=== PATIENT | male | born 1945 ===

== ENCOUNTER 2018-04-26 06:21 | Day surgery (SDC) | payer MEDICARE, OTHER ==
[2018-04-25 11:23] VITALS: BMI 23.6
--- NOTE | 2018-04-26 02:40 | HP ---
DATE OF EXAM: REASON FOR ADMISSION: Left heart catheterization, possible angioplasty and abnormal stress test. BRIEF CLINICAL HISTORY: This is a 73-year-old male with a past medical history significant for hypertension, hyperlipidemia, gastroesophageal reflux, complaining of dyspnea on exertion, and chest pain on exertion. The patient underwent a stress test abnormal, so the patient is scheduled for elective cardiac catheterization and possible angioplasty. PAST MEDICAL HISTORY: Significant for hypertension, hyperlipidemia, and gastroesophageal reflux. SOCIAL HISTORY: Denies any smoking. Denies any history of alcohol abuse. Quit smoking 20 years ago, but still claims that sometimes he drinks socially, sometimes more than socially. Recent cardiac workup as follows; the patient had echocardiography done on 03/22/2018 that shows normal chamber size systolic function, preserved ejection fraction 55%. Aortic valve only two calcified cusp seen with mild stenosis of aortic valve, mean aortic valve gradient 30 mm, cannot rule out bicuspid aortic valve. Mild aortic regurgitation. Moderate mitral regurgitation. Mild tricuspid regurgitation. The patient had a stress test that is abnormal myocardial perfusion study, partial reversible small distal anteroseptal defect suspicious for ischemia. Mild LV dysfunction, ejection fraction 44%. The patient walk on the treadmill 9 minute and [address]-T changes. No complaints of the chest pain. CURRENT MEDICATIONS: The patient is taking at home; diazepam 5 mg daily, Prevacid 30 mg daily, amlodipine and benazepril combination that is Exforge combination 10 or 20 once a day. ALLERGIES: ALLERGIC TO PENICILLIN. REVIEW OF SYSTEMS: As per HPI. PHYSICAL EXAMINATION: VITAL SIGNS: Height of the patient is 5 feet 10 inches, weight of the patient 165 pounds, and body mass index 23 kg/m2. HEENT: PERRLA. Extraocular muscles intact. NECK: Supple. No carotid bruits or thyromegaly. CHEST: Clear to auscultation. HEART: S1 and S2 regular. Loud systolic murmur noted in the aortic area. ABDOMEN: Soft. EXTREMITIES: Clubbing and cyanosis negative. IMPRESSION: Abnormal stress test, dyspnea on exertion, rule out underlying coronary artery disease, and mildly diffuse left ventricular function by stress test. The patient walked on treadmill 9 minute and 8 seconds. Echo shows mild aortic stenosis, mean gradient 30 mmHg. Bicuspid aortic valve possibly mild aortic regurgitation. Moderate mitral regurgitation. Mild tricuspid regurgitation. Right ventricular systolic pressure 32. Calculated valve area 1.3 cm2. RECOMMENDATIONS: Load with aspirin and Plavix. We will do the cardiac catheterization. Further recommendation after cardiac catheterization with the right femoral approach. Thank you, for providing us the opportunity in taking care of the patient, Fantasma Waldron. Further recommendation after cardiac catheterization. Mary Anne Villanueva MD
[2018-04-26 06:56] LABS: BASO # 0.02 K/mm3 (0.0-2.0); BASO % 0.4 % (0.0-3.0); EOS # 0.1 (0.0-0.7); GRAN # 2.5 (1.4-6.5); GRAN % 55.2 % (50.0-68.0); HEMOGLOBIN 14.7 g/dL (14.0-18.0); LYMPH # 1.3 (1.2-3.4); LYMPH % 28.9 % (22.0-35.0); MEAN CELL VOLUME 87.2 fl (80.0-105.0); MEAN CORPUSCULAR HEMOGLOBIN 29.8 pg (25.0-35.0); MEAN CORPUSCULAR HGB CONC 34.1 g/dl (31.0-37.0); MEAN PLATELET VOLUME 10.9 fl (7.0-11.0); MONO # 0.6 (0.1-0.6); MONO % 13.5 % (1.0-6.0); RBC 4.94 10^6/uL (3.5-6.1); RED CELL DISTRIBUTION WIDTH 12.9 % (11.5-14.5); WHITE BLOOD COUNT 4.5 10^3/uL (4.5-11.0)
[2018-04-26] MEDS ORDERED: Phenylephrine 10 mg/ml Inj ONE (06:59)
[2018-04-26] MEDS ORDERED: Lidocaine 2% PF (10 ml) Amp ONE (06:59)
[2018-04-26] MEDS ORDERED: Iohexol 350mgl/ml 50 ML ONE (07:00)
[2018-04-26] MEDS ORDERED: Nitroglycerin 50mg in D5W 0 MG/0 ML BOTTLE IV ONE (07:00)
[2018-04-26] MEDS ORDERED: Iodixanol 320 MG/ML 200 ML BOTTLE IV ONE (07:00)
[2018-04-26] MEDS ORDERED: Iodixanol 320 MG/ML 100 ML BOTTLE IV ONE (07:00)
[2018-04-26 07:03] LABS: INR 1.02; PROTHROMBIN TIME 11.7 SECONDS (9.4-12.5)
[2018-04-26 07:04] LABS: BLOOD UREA NITROGEN 19 mg/dL (7-21); CALCIUM 9.5 mg/dL (8.4-10.5); GFR NON-AFRICAN AMERICAN > 60; HDL CHOLESTEROL 43 mg/dL (29-60)
[2018-04-26] MEDS ORDERED: Verapamil 0 ML ONE (07:12)
[2018-04-26 07:13] VITALS: RESP 18
[2018-04-26 07:14] LABS: LDL CHOLESTEROL 85 mg/dL (0-129)
[2018-04-26] MEDS ORDERED: Midazolam 2 MG/2 ML VIAL ONE (07:59)
[2018-04-26] MEDS ORDERED: Sodium Chloride 0.9% 1,000 ML IV SCH (08:45)
--- NOTE | 2018-04-26 08:52 | CPOSTOP ---
DATE: 04/26/2018 CARDIOVASCULAR LAB POST PROCEDURE NOTE DICTATING PHYSICIAN: Mary Anne Villanueva MD ACTUARIAL TRAINEE: DAYSI Phipps, central lab technician. TYPE OF ANESTHESIA: Moderate conscious sedation, total 1 mg of Versed, 50 of fentanyl given. PRE-PROCEDURE DIAGNOSES: Unstable angina, chest pain, abnormal stress test. PROCEDURE PERFORMED: Left heart catheterization. FINDINGS: Normal coronaries, nonischemic cardiomyopathy, no aortic stenosis. FINAL DIAGNOSIS: Nonischemic cardiomyopathy. POST PROCEDURE CONDITION: The patient is stable. VASCULAR ACCESS SITE: Right femoral artery. CLOSURE DEVICE: AngioSeal. TOTAL RADIATION DOSE: 5482.6 milligray unit. TOTAL FLUORO TIME: 2.4 minutes. Mary Anne Villanueva MD
[2018-04-26 09:00] VITALS: TEMP 97.9
[2018-04-26 09:09] VITALS: O2SAT 100
[2018-04-26 12:20] VITALS: BP 127/78; PULSE 47
--- NOTE | 2018-04-26 17:14 | CARD ---
APPROVED REPORT Date of service: 04/26/2018 Procedure(s) performed: Left Heart Catheterization HISTORY The patient is a 73 year-old male with a history of : most recent EF: 44%. (EF Method: RADIONUCLIDE), tobacco history() : The patient is a former smoker , hypertension , dyslipidemia , Had an abnormal stress test ,reversible small distal anterseptal ischemia, EF-44%, mild to moderate .. INDICATION The indication(s) include : positive stress test, chest pain, dyspnea, valvular heart disease. CASE TECHNIQUE The patient was brought electively to the Cardiac Catheterization Laboratory in a fasting state and was prepped and draped in a sterile manner. The right femoral groin was infiltrated with 2% Lidocaine subcutaneous anesthesia. A 6 Fr x 11 cm Emilee sheath was inserted into the right femoral artery without difficulty. Coronary angiography was performed using coronary diagnostic catheters. The left coronary system was accessed and visualized with a Diagnostic , 6F JL4 CATH DXT 100 CM catheter. The right coronary system was accessed and visualized with a Diagnostic ,6F JR 4 CATH DXT 100 CM catheter. The left ventricle was accessed and visualized with a 6F PIGTAIL 145 CATH DXT 110 CM catheter. Left ventricular/Aortic Valve gradient assessed on pullback. Left ventriculogram was performed in DRAKE projection. Closure device was deployed with a 6 Fr / 7 Fr MynxGrip without any complications. The patient tolerated the procedure well and there were no complications associated with the procedure. Vessel Analysis The patient's coronary anatomy is right dominant. The left main coronary artery is a medium size vessel with diffuse calcification noted throughout this vessel and without significant stenosis. The left main trifurcates to the left anterior descending, circumflex, and ramus. The left anterior descending artery is a medium size vessel with diffuse calcification noted throughout this vessel and without significant stenosis. The first diagonal branch is a small size vessel without significant stenosis. The circumflex artery is a medium size vessel with diffuse calcification noted throughout this vessel and without significant stenosis. The first obtuse marginal branch is a small size vessel with intimal irregularities and without significant stenosis. The second obtuse marginal branch is a small size vessel with intimal irregularities and without significant stenosis. The ramus intermedius artery is a medium size vessel with diffuse calcification noted throughout this vessel and without significant stenosis. The right coronary artery is a large size vessel with intimal irregularities and without significant stenosis. The right posterior descending artery is a large size vessel with intimal irregularities and without significant stenosis. The right posterolateral branch is a large size vessel with intimal irregularities and without significant stenosis. Left Ventricle The left ventricle is enlarged in size with mildly decreasaed contractility. Non-Ischemic cardiomyopathy. The left ventricular ejection fraction is estimated to be 45%. The left ventricular end diastolic pressure is 10-12 mmHg. There was no gradient across the aortic valve upon pullback. Conclusion Noral coronaries Non Ischemic CMP, EF-45%, EDP-1012 mmof Hg. No gradient across aortic valve by cath( by Echo mild to moderate , but by cath). Recommendations Aggressive Medical TherapyCardiac Risk Reduction Program Cc; dr. Bonilla
--- NOTE | 2018-04-26 19:15 | CARD ---
APPROVED REPORT Date of service: 04/26/2018 EKG Measurement Heart [id number] DC [id number] <Conclusion> Marked sinus bradycardia ST abnormality, possible digitalis effect Abnormal ECG
== END 2018-04-26 14:15 | disposition home or self-care (01) ==
LOC: CATH 06:21
PROVIDERS: ATTEND Internal Medicine Cardiovascular Disease
DX: I42.9 Cardiomyopathy, unspecified (principal); I10 Essential (primary) hypertension; K21.9 Gastro-esophageal reflux disease without esophagitis; E78.5 Hyperlipidemia, unspecified; Z87.891 Personal history of nicotine dependence; Z88.0 Allergy status to penicillin
CPT/HCPCS: 36415; 80048; 80061; 85025; 85610; 85730; 86850; 86900; 93005; 93458; 99152; 99153; C1760; C1769; C2629; J1644; J2250; J3010; J7030; Q9966